=== PATIENT | female | born 2000 | race Caucasian/White ===

== ENCOUNTER 2019-10-09 12:13 | Emergency (ER) | payer OTHER ==
[~2019-10-09] VITALS: Ht 157.5 cm; Wt 115.0 kg
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
[2019-10-09 12:57] LABS: CULTURE INDICATED? YES; HCG UR SG 1.016 (1.003-1.030); MICROSCOPIC INDICATED
[2019-10-09 12:58] LABS: BASOPHILS # (AUTO) 0.06 x10^3/uL (0-0.1); BASOPHILS % (AUTO) 1 % (0-1); EOSINOPHILS # (AUTO) 0.02 x10^3/uL (0-0.4); EOSINOPHILS % (AUTO) 0 % (1-7); LYMPHOCYTES # (AUTO) 1.64 x10^3/uL (1-3.4); LYMPHOCYTES % (AUTO) 12 % (22-44); MD NO; MEAN CORPUSCULAR HEMOGLOBIN 25.9 pg (27.0-34.8); MEAN CORPUSCULAR HGB CONC 32.3 g/dL (32.4-35.8); MEAN CORPUSCULAR VOLUME 80.3 fL (80-100); MEAN PLATELET VOLUME 7.4 fL (7.4-10.4); MONOCYTES # (AUTO) 0.81 x10^3/uL (0.2-0.8); MONOCYTES % (AUTO) 6 % (2-9); NEUTROPHILS % (AUTO) 82 % (42-75); PLATELET COUNT 500 x10^3/uL (130-400); RED BLOOD COUNT 5.76 x10^6/uL (3.82-5.3); RED CELL DISTRIBUTION WIDTH 15.1 % (9.6-15.2)
[2019-10-09 13:07] LABS: AMPHETAMINE SCREEN, URINE Negative (Negative); BARBITURATE SCREEN, URINE Negative (Negative); BENZODIAZEPINE SCREEN, URINE Negative (Negative); CANNABINOID SCREEN, URINE Negative (Negative); COCAINE SCREEN, URINE Negative (Negative); METHADONE SCREEN, URINE Negative (Negative); OPIATE SCREEN, URINE Negative (Negative)
[2019-10-09 13:09] LABS: ALANINE AMINOTRANSFERASE 37 U/L (12-78); ALBUMIN 4.1 g/dL (3.4-5.0); ANION GAP 7 mmol/L (5-15); CALCIUM 9.4 mg/dL (8.5-10.1); CHLORIDE 110 mmol/L (98-107); CREATININE 0.72 mg/dL (0.55-1.02)
[2019-10-09 13:13] LABS: ALKALINE PHOSPHATASE 120 U/L (45-117); BILIRUBIN,TOTAL 0.6 mg/dL (0.2-1.0); SALICYLATE LEVEL < 1.7 mg/dL (2.8-20.0); TOTAL PROTEIN 7.7 g/dL (6.4-8.2)
--- NOTE | 2019-10-09 14:00 | NUR ---
THROUGHPUT RN: ATTEMPTED TO HAVE [facility] OR [facility]ACKEL[facility] DASILVA [facility] COME EVALUATE PT. THEY ARE CURRENTLY UNAVAILABLE.
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
--- NOTE | 2019-10-09 14:43 | NUR ---
THROUGHPUT RN: [employer] DECLINED SECONDARY TO INSURANCE.
--- NOTE | 2019-10-09 14:59 | NUR ---
THROUGHPUT RN: PACKET FAXED TO [facility].
--- NOTE | 2019-10-09 15:48 | NUR ---
PT RESTING. NO NEEDS AT THIS TIME. SITTER PRESENT
--- NOTE | 2019-10-09 18:06 | NUR ---
HEIDI TAPIA AT BEDSIDE.
--- NOTE | 2019-10-09 19:22 | NUR ---
Received report from diurnal RN. Assumed patient care. Patient was in with family, after seeing [facility] TECH. Sitter in hallway within 2 steps of patient. Patient denies needs at this time. Vitals stable.
--- NOTE | 2019-10-10 01:21 | NUR ---
Patient asleep, lights dimmed, can visualize breathing movements from door. Sitter in hallway two steps from patient.
--- NOTE | 2019-10-10 06:59 | NUR ---
REPORT RECIEVED FROM FELIPE KEARNEY. PATIENT SLEEPING IN BED, SAFETY PRECAUTIONS IN PLACE.
[2019-10-10 07:34] VITALS: BP 133/91
--- NOTE | 2019-10-10 08:29 | NUR ---
MEAL PROVIDED, SAFETY PRECAUTIONS IN PLACE
--- NOTE | 2019-10-10 09:53 | NUR ---
THROUGHPUT RN: SPOKE W/ BREE FROM [facility]. NO ADMIT CAPABILITY TODAY.
--- NOTE | 2019-10-10 11:15 | NUR ---
PATIENT RESTING IN BED, SAFETY PRECAUTIONS IN PLACE
--- NOTE | 2019-10-10 12:13 | NUR ---
MEAL TRAY PROVIDED. SAFETY PRECAUTIONS IN PLACE
--- NOTE | 2019-10-10 13:47 | NUR ---
INEZ FROM PSYCH AT BEDSIDE FOR EVALUATION
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
== END 2019-10-10 15:08 | disposition home or self-care (01) ==
LOC: ED 13:55
DX: T36.4X1A Poisoning by tetracyclines, accidental (unintentional), initial encounter (principal); Y92.9 Unspecified place or not applicable; R45.851 Suicidal ideations
CPT/HCPCS: 36415; 80053; 80307; 81001; 81025; 83690; 85025; 87086; 93005; 99284